=== PATIENT | female | born 1945 | race Caucasian/White ===

== ENCOUNTER 2017-06-18 07:02 | Day surgery (SDC) | payer MEDICARE, OTHER ==
[~2017-06-18 07:02] MED LIST: Lactated Ringers 1,000 ML IV SCH; Lidocaine 1%/Sod Bicarbonate in NS 8.4% 1 ML Syringe IDERM PRN; Sodium Chloride 0.9% 10 ML Syringe FLUSH PRN
--- NOTE | 2017-06-18 07:32 | PCM.PREANE ---
Preanesthetic Assessment - Procedure Proposed Procedure: Colonoscopy - Anesthesia/Transfusion/Family Hx Anesthesia History: Prior Anesthesia Without Reaction Family History of Anesthesia Reaction: No Transfusion History: No Prior Transfusion(s) Intubation History: History of Difficulty Intubation - Review of Systems General: No Symptoms Pulmonary: No Symptoms Cardiovascular: No Symptoms Gastrointestinal: No Symptoms Neurological: No Symptoms Other: Reports: None - Physical Assessment NPO Status Date: 06/17/17 NPO Status Time: 22:00 Pulse: 61 O2 Sat by Pulse Oximetry: 96 Respiratory Rate: 16 Blood Pressure: 116/71 Temperature: 96 C Height: 1.6 m Weight: 43.091 kg ASA Class: 2 Mental Status: Alert & Oriented x3 Airway Class: Mallampati = 2 Dentition: Reports: Normal Dentition (dark looking teeth ) Thyro-Mental Finger Breadths: 2 Mouth Opening Finger Breadths: 4 ROM/Head Extension: Full Lungs: Clear to Auscultation, Normal Respiratory Effort Cardiovascular: Regular Rate, Regular Rhythm - Allergies Allergies/Adverse Reactions: Allergies Allergy/AdvReac Type Severity Reaction Status Date / Time LUKAS Inhibitors Allergy Cough Verified 06/15/17 14:15 atorvastatin [From Lipitor] Allergy Muscle Verified 06/15/17 14:15 Aches lisinopril [From Zestril] Allergy Cough Verified 06/15/17 14:15 - Blood Blood Available: No - Acknowledgements Anesthesia Type Planned: MAC Pt an Appropriate Candidate for the Planned Anesthesia: Yes Alternatives and Risks of Anesthesia Discussed w Pt/Guardian: Yes Pt/Guardian Understands and Agrees with Anesthesia Plan: Yes PreAnesthesia Questionnaire HEENT History: Reports: Cataract Cardiovascular History: Reports: Angina, CAD, High Cholesterol, [place], Stents, Other (See Below) Other Cardiovascular History: left ventricular diastolic dysfunction, AAA, mitral valve regurgitation, PCI with stents in 2000 and 2003 Respiratory History: Reports: Other (See Below) Other Respiratory History: emphysema Gastrointestinal History: Reports: Colon Polyp, Inflammatory Bowel Disease Genitourinary History: Reports: None [employer] History: Reports: Other (See Below) Other OB/BYN History: ASCUS Musculoskeletal History: Reports: None Neurological History: Reports: None Psychiatric History: Reports: Depression Endocrine/Metabolic History: Reports: Osteopenia Hematologic History: Reports: None Immunologic History: Reports: None Oncologic (Cancer) History: Reports: None Dermatologic History: Reports: None - Past Surgical History Head Surgeries/Procedures: Reports: None HEENT Surgical History: Reports: Cataract Surgery Cardiovascular Surgical History: Reports: None GI Surgical History: Reports: Colonoscopy Female Surgical History: Reports: None Male Surgical History: Reports: None Endocrine Surgical History: Reports: None Neurological Surgical History: Reports: None Musculoskeletal Surgical History: Reports: None Oncologic Surgical History: Reports: None Dermatological Surgical History: Reports: None - SUBSTANCE USE Smoking Status *Q: Current Every Day Smoker Tobacco Use Within Last Twelve Months: Cigarettes (1/2 pk / day for 25 years) Recreational Drug Use History: No - HOME MEDS Home Medications: Home Meds Aspirin [Lo-Dose Aspirin EC] 81 mg PO DAILY 06/15/17 [History] Cholecalciferol (Vitamin D3) [Vitamin D3] 1,000 unit PO DAILY 06/15/17 [History] Clopidogrel [Plavix] 75 mg PO DAILY 06/15/17 [History] Fish Oil/[place]-3 Fatty Acids [Fish Oil 1,000 MG] 1 gm PO DAILY 06/15/17 [History ] LORazepam [LORazepam] 0.5 mg PO BID PRN 06/15/17 [History] Multivitamin [Daily Lisseth] 1 tab PO DAILY 06/15/17 [History] Nitroglycerin [Nitrostat] 0.4 mg PO DAILY 06/15/17 [History] Rosuvastatin [Crestor] 10 mg PO DAILY 06/15/17 [History] Sertraline [Zoloft] 25 mg PO DAILY 06/15/17 [History] Vitamin A 10,000 units PO DAILY 06/15/17 [History] - CURRENT (IN HOUSE) MEDS Current Meds: Current Medications Lactated Ringer's (Ringers, Lactated) 1,000 mls @ 125 mls/hr IV ASDIRECTED RADHA Stop: 06/18/17 23:00 Lidocaine/Sodium Bicarbonate (Buffered Lidocaine 1% In Ns 8.4%) 0.25 ml IDERM ONETIME PRN PRN Reason: Prior to IV Start Stop: 06/18/17 18:00 Sodium Chloride (Saline Flush) 10 ml FLUSH ASDIRECTED PRN PRN Reason: Keep Vein Open Stop: 06/18/17 18:00
[2017-06-18] MEDS ORDERED: Propofol 200 MG/20 ML SDV ONE (07:43)
[2017-06-18] MEDS ORDERED: Lidocaine 1% 4 ML ONE (07:43)
--- NOTE | 2017-06-18 08:57 | PCM.OPNOTE ---
- General Post-Op/Procedure Note Date of Surgery/Procedure: 06/18/17 Operative Procedure(s): colonoscopy to cecum Pre Op Diagnosis: surveillance colonoscopy Post-Op Diagnosis: Same Anesthesia Technique: MAC Primary Surgeon: Luis Armando Garvin EBL in mLs: 0 Complications: None Condition: Good
--- NOTE | 2017-06-18 08:58 | PCM48HPAN ---
Post Anesthesia Note - EVALUATION WITHIN 48HRS OF ANESTHETIC Vital Signs in Normal Range: Yes Patient Participated in Evaluation: Yes Respiratory Function Stable: Yes Airway Patent: Yes Cardiovascular Function Stable: Yes Hydration Status Stable: Yes Pain Control Satisfactory: Yes Nausea and Vomiting Control Satisfactory: Yes Mental Status Recovered: Yes Pulse Rate: 60 SaO2: 99 Resp Rate: 16 Temperature: 36.4 C Blood Pressure: 106/71 Pulse Rate: 60
--- NOTE | 2017-06-18 15:54 | OR ---
DATE OF OPERATION: 06/18/2017 SURGEON: Luis Armando Garvin MD PREOPERATIVE DIAGNOSIS: Surveillance for colonic polyps. POSTOPERATIVE DIAGNOSIS: Surveillance for colonic polyps. OPERATION PERFORMED: Colonoscopy to cecum. FINDINGS: Occasional diverticula in the descending and sigmoid colons. There were no angiodysplasias, neoplasias, large tumor masses, ulcerations, or notable hemorrhoids. ANESTHESIA: Procedure done under IV sedation. DESCRIPTION OF PROCEDURE: The patient was taken to the operating room, placed in a supine position, connected to monitoring equipment, given IV sedation, and placed in a left lateral position. Perianal area was inspected and was normal. Rectal exam showed good sphincter tone. A video Olympus colonoscope was then introduced into the rectum and threaded up without problem to the cecum, where the appendicular orifice was noted. Prep was excellent throughout the colon. [place] cleansing score grade A. The scope was slowly withdrawn showing the cecum, ascending colon, transverse colon, descending colon, sigmoid colon, and rectum. Retroflexed view was not done. The patient tolerated the procedure, sent to recovery room in a stable condition, and will be followed up as needed in the clinic. ESTIMATED BLOOD LOSS: MMODAL /[id number]
== END 2017-06-18 09:27 | disposition home or self-care (01) ==
LOC: JD.SDS 07:02
PROVIDERS: ATTEND Surgery
DX: K57.30 Diverticulosis of large intestine without perforation or abscess without bleeding (principal); F17.210 Nicotine dependence, cigarettes, uncomplicated; E78.5 Hyperlipidemia, unspecified; I25.10 Atherosclerotic heart disease of native coronary artery without angina pectoris; M85.80 Other specified disorders of bone density and structure, unspecified site; F32.9 Major depressive disorder, single episode, unspecified; I25.2 Old myocardial infarction; Z79.02 Long term (current) use of antithrombotics/antiplatelets; Z86.010 Personal history of colon polyps; Z98.890 Other specified postprocedural states; Z79.899 Other long term (current) drug therapy; Z88.8 Allergy status to other drugs, medicaments and biological substances; Z95.5 Presence of coronary angioplasty implant and graft
CPT/HCPCS: 45378; J7120; 00811; J2001; J2704

== ENCOUNTER 2021-09-04 00:03 | Emergency (ER) | payer MEDICARE, OTHER | END 2021-09-04 06:15 | disposition home or self-care (01) | LOC: JD.ED 00:03 | DX: R41.0 Disorientation, unspecified (principal); I25.119 Atherosclerotic heart disease of native coronary artery with unspecified angina pectoris; E78.00 Pure hypercholesterolemia, unspecified; I25.2 Old myocardial infarction; Z79.82 Long term (current) use of aspirin; Z79.899 Other long term (current) drug therapy; Z88.8 Allergy status to other drugs, medicaments and biological substances | CPT/HCPCS: 36415; 70450; 70450-26; 80053; 81001; 83735; 84484; 85025; 93005; 99285-25 ==